=== PATIENT | female | born 1975 | race Caucasian/White ===

== ENCOUNTER 2018-03-31 18:21 | Emergency (ER) | payer OTHER ==
[2018-03-31 18:24] VITALS: BP 130/67; BMI 27.4
--- NOTE | 2018-03-31 18:46 | PDOC ---
History of Present Illness - General History Source: Patient Exam Limitations: No Limitations - History of Present Illness Initial Comments: 03/31/18 19:25 The patient is 42-year-old female presents to the emergency department with one day of generalized body ache. The patient states widespread pain in the muscles of the face, neck, and lower extremities, twitching and pounding in character, no relief with 600mg of Ibuprofen. The patient reports the symptoms are similar to prior flu flare up but states the pain is unbearable. The patient reports associated symptoms of dry mouth, sore throat, dry cough, sinus pain and chest tightness. The patient reports pain to the lower abdominal region states the pain is similar to a flare-up of fibroids, and that is expecting her period soon. The patient reports taking Excedrin for a headache, without relief. The patient reports an additional concern of diarrhea, watery in character, denies hematochezia. The patient reports following up with a urologist a day prior for urinary frequency states she was informed to follow up after UTI clears up. The patient states she was diagnosed with UTI a week prior, was prescribed Bactrim, reports only using the medication for 5 days of the 10 days prescribed. Denies fever or chills. Denies chest pain. Denies constipation, nausea or vomiting. Denies recent travel or sick contact. Denies dysuria, or hematuria. PMHx: Childhood Asthma and prior kidney stones. Patient dont recall if she passed the kidney stone or not. Allergies: NKA PSHx: ABDOMINALPLASTY SHx: Daily use of cigarettes reported. PCP: None reported. <Tea Monterroso - Last Filed: 03/31/18 19:31> - General History Source: Patient Exam Limitations: No Limitations <Leanna Drake - Last Filed: 04/05/18 21:02> - General Chief Complaint: Cold Symptoms Stated Complaint: BODY ACHES Time Seen by Provider: 03/31/18 18:45 Past History <Tea Monterroso - Last Filed: 03/31/18 19:31> - Past Medical History Asthma: Yes COPD: No - Surgical History Abdominal Surgery: Yes (ABDOMINALPLASTY) - Suicide/Smoking/Psychosocial Hx Smoking History: Current every day smoker Number of Cigarettes Smoked Daily: 20 Information on smoking cessation initiated: Yes Hx Alcohol Use: Yes Drug/Substance Use Hx: No Substance Use Type: Alcohol <Leanna Drake - Last Filed: 04/05/18 21:02> - Past Medical History Allergies/Adverse Reactions: Allergies Allergy/AdvReac Type Severity Reaction Status Date / Time No Known Allergies Allergy Verified 03/31/18 19:08 Review of Systems - Review of Systems Able to Perform ROS?: Yes Comments:: 03/31/18 19:35 GENERAL/CONSTITUTIONAL: (+) Generalized malaise. No fever or chills. No weakness. no sweats. HEAD, EYES, EARS, NOSE AND THROAT: (+)Pain to the muscle of the face. No change in vision or hearing. No ear pain or discharge. (+) dry mouth. No sore throat or mouth pain. No difficulty swallowing.. No congestion. CARDIOVASCULAR: (+) Chest tightness. No chest pain or palpitations, syncope or edema. RESPIRATORY: (+) Dry cough. No SOB, wheezing, or hemoptysis. GASTROINTESTINAL: (+) Watery diarrhea a day prior. No nausea/vomiting.or constipation. No bloody stools. GENITOURINARY: (+) UTI on Bactrim. (+) Urinary frequency. No hematuria, dysuria , urgency or other changes. MUSCULOSKELETAL: (+) Diffuse joint pain. Neck pain and back pain. No joint or muscle swelling. No neck stiffness. SKIN: No rash or changes in skin color or lesions. NEUROLOGIC: (+) headache. No vertigo, loss of consciousness, or change in strength/sensation. No gait instability. HEMATOLOGIC/LYMPHATIC: No anemia, easy bruising/bleeding, or history of blood clots. ALLERGIC/IMMUNOLOGIC: No allergies All other systems reviewed and negative, or as documented in HPI. <Tea Monterroso - Last Filed: 03/31/18 19:31> *Physical Exam - Vital Signs Last Vital Signs Temp Pulse Resp BP Pulse Ox 98.6 F 97 H 17 130/67 100 03/31/18 18:22 03/31/18 18:22 03/31/18 18:22 03/31/18 18:22 03/31/18 18:22 - Physical Exam Comments: 03/31/18 19:30 General: Well appearing, awake and alert, NAD. HEENT: (+) Sinus tenderness to palpation. NCAT, PERRL, EOMI, clear conjunctiva , anicteric, moist mucus membranes, clear oropharynx, no oral lesions.. Neck: neck supple, FROM Resp: CTAB, normal and even respirations, no respiratory distress CVS: RRR, no murmurs, 2+ peripheral pulses throughout, no peripheral edema Abdomen: Diffuse abdominal tenderness. Mild R. CVA tenderness. soft, ND, no peritoneal signs. Back: (+) Right upper back tenderness, normal inspection and ROM MSK: no edema, DOWNS x4, ROM intact. No clubbing or cyanosis. normal bulk and tone. Neuro: alert, oriented appropriately; no focal neurologic deficits. SILT, 5/5 distal and prox strength in all extrem. speech clear. Skin: warm and well perfused, cap refill <2 sec, normal color <Tea Monterroso - Last Filed: 03/31/18 19:31> - Vital Signs Last Vital Signs Temp Pulse Resp BP Pulse Ox 98.6 F 97 H 17 130/67 100 03/31/18 18:22 03/31/18 18:22 03/31/18 18:22 03/31/18 18:22 03/31/18 18:22 <Leanna Drake - Last Filed: 04/05/18 21:02> ED Treatment Course - LABORATORY CBC & Chemistry Diagram: 03/31/18 19:15 03/31/18 19:15 - Medications Given in the ED: ED Medications Discontinued Medications Generic Name Dose Route Start Last Admin Trade Name Freq PRN Reason Stop Dose Admin Sodium Chloride 1,000 ml 03/31/18 19:03 03/31/18 19:15 Normal Saline - IV 03/31/18 19:04 1,000 ml ONCE ONE Administration <Tea Monterroso - Last Filed: 03/31/18 19:31> - LABORATORY CBC & Chemistry Diagram: 03/31/18 19:15 03/31/18 19:15 <Leanna Drake - Last Filed: 04/05/18 21:02> Medical Decision Making - Medical Decision Making 04/05/18 20:59 A portion of this note was documented by scribe services under my direction. I have reviewed the details of the note, within reason, and agree with the documentation with the following case summary and management plan written by me. In summary 42 YOF with generalized malaise, flank/abdominal pain, subjective fevers and chills, cough with recent incomplete course of bactrim for ?UTI. vitals signs wnl, HR in 90s basic labs, lytes, preg test, UA and IVF, urine cx DDx. pyelo, UTI, viral syndrome, electrolyte/metabolic derangements. dehydration. doubt appy or intra abdominal pathology or bacteremia or sepsis given reassuring exam and presentation. recheck UA given possible pyelo. s/o to Dr. Valencia overnight pending labs, reeval and ultimate dispo. 04/05/18 21:00 04/05/18 21:01 <Leanna Drake - Last Filed: 04/05/18 21:02> *DC/Admit/Observation/Transfer <Tea Monterroso - Last Filed: 03/31/18 19:31> <Leanna Drake - Last Filed: 04/05/18 21:02> Diagnosis at time of Disposition: Viral syndrome - Discharge Dispostion Disposition: HOME Condition at time of disposition: Stable - Patient Instructions Additional Instructions: You can alternate acetaminophen with ibuprofen every 3-4 hours if needed for fever, headache, body aches. Stay inside where it is cool, stay well-hydrated and get plenty of rest.. Return to the emergency department immediately with ANY new, persistent or worsening symptoms. Continue any medications as previously prescribed by your physician. You should follow up with your primary doctor as soon as possible regarding today's emergency department visit. . Please make sure your doctor reviews the results of your emergency evaluation. Thank you for coming to the Emergency Department today for your care. It was a pleasure to see you today. Please note that your evaluation is INCOMPLETE until you follow-up with your doctor.
[2018-03-31] MEDS ORDERED: KETOROLAC TROMETHAMINE 15 MG/ML VIAL IVPUSH ONE (19:03)
[2018-03-31] MEDS ORDERED: SODIUM CHLORIDE 0.9% 500 ML INFUS.BAG IV ONE (19:03)
[2018-03-31 19:21] LABS: PH,URINE 5.5 (4.5-8); URINE APPEARANCE Clear; URINE BILIRUBIN Negative (NEGATIVE); URINE COLOR Yellow; URINE GLUCOSE (UA) Negative (NEGATIVE); URINE KETONE Negative (NEGATIVE); URINE LEUK ESTERASE Negative (NEGATIVE); URINE NITRITE Negative (NEGATIVE); URINE PROTEIN Negative (NEGATIVE); URINE UROBILINOGEN 0.2 (0.2-1.0)
--- NOTE | 2018-03-31 19:26 | PDOC ---
*Physical Exam - Vital Signs Last Vital Signs Temp Pulse Resp BP Pulse Ox 98.6 F 97 H 17 130/67 100 03/31/18 18:22 03/31/18 18:22 03/31/18 18:22 03/31/18 18:22 03/31/18 18:22 ED Treatment Course - LABORATORY CBC & Chemistry Diagram: 03/31/18 19:15 03/31/18 19:15 - Medications Given in the ED: ED Medications Discontinued Medications Generic Name Dose Route Start Last Admin Trade Name Adeline PRN Reason Stop Dose Admin Sodium Chloride 1,000 ml 03/31/18 19:03 03/31/18 19:15 Normal Saline - IV 03/31/18 19:04 1,000 ml ONCE ONE Administration Progress Note - Progress Note Progress Note: Care was transferred to me from at 1900 hrs. This is a 42-year-old female who has 1 day of generalized body ache. The patient states widespread pain in the muscles of the face, neck, and lower extremities, with no relief with 600mg of Ibuprofen. The patient reports associated symptoms of dry mouth, sore throat , dry cough, sinus pain and chest tightness. The patient reports pain to the lower abdominal region states the pain is similar to a flare-up of fibroids. Patient's workup is still pending including CBC, comp and urinalysis. 20:00 Patient's workup was pretty much unremarkable her white count is mildly elevated at 13.5 otherwise there is no left shift. The chemistries are normal and the urinalysis is negative for any red cells white cells or bacteria. Patient most likely has a viral syndrome. Patient was told to continue to take her ibuprofen or Aleve for body aches headaches or fever and follow-up with her primary care doctor in 3-4 days if not improved. *DC/Admit/Observation/Transfer Diagnosis at time of Disposition: Viral syndrome - Discharge Dispostion Disposition: HOME Condition at time of disposition: Stable Decision to Admit order: No - Referrals - Patient Instructions Additional Instructions: You can alternate acetaminophen with ibuprofen every 3-4 hours if needed for fever, headache, body aches. Stay inside where it is cool, stay well-hydrated and get plenty of rest.. Return to the emergency department immediately with ANY new, persistent or worsening symptoms. Continue any medications as previously prescribed by your physician. You should follow up with your primary doctor as soon as possible regarding today's emergency department visit. . Please make sure your doctor reviews the results of your emergency evaluation. Thank you for coming to the Emergency Department today for your care. It was a pleasure to see you today. Please note that your evaluation is INCOMPLETE until you follow-up with your doctor. - Post Discharge Activity
[2018-03-31 19:29] LABS: HCG,QUALITATIVE URINE Negative
[2018-03-31 19:34] LABS: BASO % 1.1 % (0-2.0); EOS % 0.7 % (0-4.5); HEMATOCRIT 38.8 % (32.4-45.2); HEMOGLOBIN 13.3 GM/dl (10.7-15.3); LYMPH % 13.2 % (8-40); MCHC 34.4 g/dl (32.0-36.0); MEAN CELL VOLUME 90.2 fl (80-96); MEAN PLT VOLUME 8.2 fl (7.5-11.1); MONO % 5.6 % (3.8-10.2); NEUT % 79.4 % (42.8-82.8); PLATELET COUNT 297 K/MM3 (134-434); RDW 13.2 % (11.6-15.6); WHITE BLOOD COUNT 13.5 K/mm3 (4.0-10.8)
[2018-03-31 19:43] LABS: ALBUMIN 3.8 g/dl (3.5-5.0); ALK PHOS 48 U/L (32-92); ANION GAP 6 MMOL/L (8-16); BILIRUBIN,TOTAL 0.5 mg/dl (0.2-1.0); BLOOD UREA NITROGEN 14 mg/dl (7-18); CALCIUM 8.7 mg/dl (8.4-10.2); CHLORIDE 102 mmol/L (98-107); CO2 26 mmol/L (22-28); CREATININE 0.8 mg/dl (0.6-1.3); GLUCOSE,RANDOM 96 mg/dl (74-106); POTASSIUM 3.8 mmol/L (3.5-5.1); SGOT/AST 17 U/L (10-42); SGPT/ALT 17 U/L (10-40); SODIUM 134 mmol/L (136-145); TOT PROT 6.5 g/dl (6.4-8.3)
[2018-03-31 20:05] VITALS: PULSE 82; TEMP 98.1
== END 2018-03-31 20:05 | disposition home or self-care (01) ==
LOC: FER 18:21
PROC: 3E0337Z Introduction of Electrolytic and Water Balance Substance into Peripheral Vein, Percutaneous Approach (ICD-10-PCS; principal; 2018-03-31)
PROC: 3E0333Z Introduction of Anti-inflammatory into Peripheral Vein, Percutaneous Approach (ICD-10-PCS; 2018-03-31)
DX: B34.9 Viral infection, unspecified (principal)
CPT/HCPCS: 36415; 80053; 81003; 84703; 85025; 87086; 99283-25